=== PATIENT | male | born 1980 | race African-American/Black ===

== ENCOUNTER 2017-10-15 18:37 | Emergency (ER) | payer OTHER ==
[~2017-10-15] VITALS: Ht 188 cm; Wt 113.4 kg
--- NOTE | ~2017-10-15 | EKG ---
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: [facility] : 1980 Requested By: Joey Hernández Order Number: [id number] MD: Jersey Palacios Measurements Intervals [place] Rate: 70 P: 57 NC: 162 QRS: 22 QRSD: 97 T: 33 QT: 368 QTc: 398 Interpretive Statements Sinus rhythm No significant abnormality No previous ECG available for comparison Electronically Signed On 10-16-2017 9:18:48 CDT by Jersey Palacios [email or web address] <ELECTRONICALLY SIGNED> By: Jersey Palacios MD, [facility] 10/16/17 0918 1853 1853 Jersey Palacios MD, FAC /EPI
[~2017-10-15 18:37] MED LIST: IBUPROFEN 200200 M1 PO; IBUPROFEN 600600 M1 PO; PROCTOFOAM-HC F10 GM RC; STOOL SOFTENER1 EAC2 PO; ULTRAM 50MG TAB50 MG PO
[2017-10-15 19:20] LABS: ABSOLUTE NEUTROPHILS 2.2 thou/uL (1.4-8.2); BASOPHILS 1.1 % (0.0-2.0); EOSINOPHILS 3.7 % (0.0-3.0); HEMATOCRIT 44.3 % (42.0-52.0); LYMPHOCYTES 47.3 % (24.0-44.0); MCH 28.9 pg (26.0-34.0); MCHC 33.9 g/dL (28.0-37.0); MCV 85.3 fL (80.0-100.0); MONOCYTES 6.6 % (1.0-8.0); PLATELET COUNT 266 thou/uL (150-400); POLYS 41.3 % (36.0-66.0); RBC 5.19 mil/uL (4.50-6.00); RDW 13.2 % (10.5-14.5); WBC 5.4 thou/uL (4.0-11.0)
[2017-10-15 19:29] LABS: ANION GAP 7 mmol/L (7-16); BUN 16 mg/dL (7-18); CALCIUM 9.5 mg/dL (8.5-10.1); CHLORIDE 103 mmol/L (98-107); CO2 28 mmol/L (21-32); GLUCOSE 122 mg/dL (74-106); POTASSIUM 3.7 mmol/L (3.5-5.1); SODIUM 138 mmol/L (136-145)
[2017-10-15 19:39] LABS: ALBUMIN 3.8 g/dL (3.4-5.0); DIRECT BILIRUBIN 0.1 mg/dL (<0.1-0.3); MAGNESIUM 2.1 mg/dL (1.8-2.4); SGOT 20 U/L (15-37); SGPT 33 U/L (30-65); TOTAL BILIRUBIN 0.5 mg/dL (<0.1-1.0); TOTAL PROTEIN 7.9 g/dL (6.4-8.2); TROPONIN-I < 0.04 ng/mL (<0.06)
[2017-10-15 20:16] VITALS: BP 112/75
== END 2017-10-15 20:17 | disposition home or self-care (01) ==
LOC: ER 18:37
PROVIDERS: Physician Assistant
DX: R07.89 Other chest pain (principal); R06.02 Shortness of breath; R06.00 Dyspnea, unspecified

== ENCOUNTER 2018-03-09 10:32 | Observation (INO) | payer OTHER ==
[~2018-03-09] VITALS: Ht 188 cm; Wt 113.4 kg
--- NOTE | ~2018-03-09 | EEG ---
[facility] [address] [address] ELECTROENCEPHALOGRAM Name: LURDES NAILS Room #: 458-P [facility] M.RTravis#: [id number] Admission: 03/09/18 Attend Phys: Desiree Segundo Discharge: Date of : 78 Report #: [id number] THIS REPORT FOR: //name// CC: FAM physician/PCP Desiree Bowden DATE OF SERVICE: 03/10/2018 This patient is being evaluated for followup of seizures. This is a repeat EEG to compare with the last one. The patient's background activity is about 11 Hz and 40 microvolts. The patient went to sleep that is associated with bilaterally symmetrical sleep spindle and slow waves. Photic stimulation is unremarkable. There may be 1 episode of seizure activity. IMPRESSION: Marked improvement in this patient's EEG since yesterday. There is either complete or near complete resolution of the patient's epileptiform activity on the EEG. Clinical correlation is recommended. Thank you very much for this referral. By: [id number] Chris Bowden MD /melissa
--- NOTE | ~2018-03-09 | EEG ---
[facility] [address] [place] [address] ELECTROENCEPHALOGRAM Name: LURDES NAILS Room #: REG [facility]#: [id number] Admission: 03/09/18 Attend Phys: Discharge: Date of : 78 Report #: [id number] THIS REPORT FOR: //name// CC: HEATHER physician/PCP Italo Heath DATE OF SERVICE: 03/09/2018 The patient's EEG was done to evaluate the patient for seizure. EEG was done by placing the electrode by standard 10-20 system of electrode placement. Both referential and sequential montages were used for recording. Background activity in this patient's EEG is about 10 Hz and 30 microvolt. The patient became drowsy and that is associated with bilateral slowing. Photic stimulation is unremarkable. Repeated episodes of spike and slow wave activity was noticed during this record. IMPRESSION: This patient's EEG demonstrates repeated episodes of spike and slow wave activity on both sides. That finding would be consistent with seizure disorder. Thank you very much for this referral. By: 1401 1417 Chris Bowden MD /melissa
--- NOTE | ~2018-03-09 | HC ---
[facility] [place] [address] CONSULTATION Name: LURDES NAILS Room #: 458-[facility] M..#: [id number] Admission: 03/09/18 Attend Phys: Desiree Nice Discharge: Date of : 78 Report #: [id number] THIS REPORT FOR: //name// CC: HEATHER physician/PCP Desiree Bowden DATE OF SERVICE: 03/09/2018 HISTORY OF PRESENT ILLNESS: This is a 37-year-old male patient who indicated that he started having seizure when he was 14. They were grand mal seizure and he was put on Dilantin. He took Dilantin for several years and the seizures were controlled. However, before the seizures were controlled, he had multiple seizures. They were all grand mal seizures. He stopped taking his Dilantin by himself several years ago. He did not have any more episodes, but at 6:00 this morning he started having jerking movements. These are periodic jerks which he is having. They came spontaneously without any trauma. They are quite frequent. It is not associated with any headache. REVIEW OF SYSTEMS: Indicate that he had seizure disorder as described. He has been seen in the Emergency Room twice for the chest pain, but I do not think any cardiac etiology has been found. He indicates otherwise he is healthy. I carried out the 14-point review of system and that looks unremarkable. PAST MEDICAL HISTORY: Positive for seizure. FAMILY HISTORY: Negative for epilepsy. SOCIAL HISTORY: He drinks alcohol very rarely. He does not smoke. 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 I asked him if they were aware of his history of seizure. He indicated nobody asked him. PHYSICAL EXAMINATION: This patient is alert and responsive. He is able to follow simple command. His cranial nerve examinations appear unremarkable. His strength, sensation, reflexes and tone is symmetrical. There is no meningeal sign. There is no carotid bruit. Cardiac examination is unremarkable. His vital signs indicate blood pressure of 145/86, respiration is 16, pulse is 78, and temperature is 98.4. LABORATORY DATA: Indicate his sodium is 137. His hemoglobin is 15. His magnesium is normal. His EEG demonstrates pretty significant seizure activity on both sides. It is a generalized spike and slow wave activity. IMPRESSION AND RECOMMENDATIONS: I had a long talk with this patient. I told him that he needs to be on anticonvulsant and he needs to take it all his life. [facility] [address] [place] [address] CONSULTATION Name: LURDES NAILS Room #: [facility] Lashawn Ibrahim#: [id number] Admission: 03/09/18 Attend Phys: Desiree Nice Discharge: Date of : 78 Report #: [id number] His EEG is markedly abnormal. I discussed available anticonvulsants with him and after discussing with him, we will go ahead and give him a loading dose of Keppra about 1000 mg and then start him on 750 b.i.d. His EEG shows so much seizure activity and he is repeatedly having jerking movement, he is set up to have a grand mal seizure. Because of that, I recommended admitting him till tomorrow. We will repeat the EEG tomorrow to see if epileptiform activity has decreased. I told him that he needs to take seizure precaution. I discussed those seizure precautions with him. I told him that he cannot drive any vehicle for 6 months. If has no seizure for 6 months, he can drive his car. I told him that he cannot drive his truck any more, but can he ever able to drive truck and how long he has to take the restrictions he needs to address that with Department of Transportation doctor, but for 6 months at least he cannot drive any kind of vehicle. He understood that very well. All of it was discussed with him in detail and more than 50 minutes of time was spent taking care of this patient today and majority of that time was spent counseling the patient and coordinating his care by talking to other health resident care technician. By: [id number] Chris Bowden MD /melissa
[2018-03-09 10:51] VITALS: BP 155/90
[2018-03-09 12:54] LABS: CALCIUM 9.3 mg/dL (8.5-10.1); CREATININE 0.9 mg/dL (0.7-1.3); MAGNESIUM 1.9 mg/dL (1.8-2.4); POTASSIUM 3.6 mmol/L (3.5-5.1)
[2018-03-09 15:21] LABS: ABSOLUTE NEUTROPHILS 4.1 thou/uL (1.4-8.2); BASOPHILS 0.7 % (0.0-2.0); EOSINOPHILS 1.7 % (0.0-3.0); HEMATOCRIT 43.8 % (42.0-52.0); HEMOGLOBIN 14.9 gm/dL (14.0-18.0); LYMPHOCYTES 31.1 % (24.0-44.0); MCV 85.4 fL (80.0-100.0); MONOCYTES 5.9 % (1.0-8.0); PLATELET COUNT 311 thou/uL (150-400); POLYS 60.6 % (36.0-66.0); RBC 5.13 mil/uL (4.50-6.00); RDW 13.1 % (10.5-14.5); WBC 6.7 thou/uL (4.0-11.0)
[2018-03-09 15:31] LABS: URINE BILIRUBIN NEGATIVE (Negative); URINE BLOOD NEGATIVE (Negative); URINE CLARITY CLEAR; URINE COLOR YELLOW; URINE GLUCOSE-RANDOM* NEGATIVE (Negative); URINE KETONES NEGATIVE (Negative); URINE LEUKOCYTES-REFLEX NEGATIVE (Negative); URINE NITRITE-REFLEX NEGATIVE (Negative); URINE PROTEIN (DIPSTICK) NEGATIVE (Negative); URINE UROBILINOGEN 0.2 E.U./dl (0.2-1.0)
[2018-03-09 15:39] LABS: AMP/METHAMP Negative (Negative); BARBITURATES Negative (Negative); BENZODIAZEPINES Negative (Negative); COCAINE Negative (Negative); METHADONE Negative (Negative); OPIATES Negative (Negative); PCP Negative (Negative)
[2018-03-09 20:43] VITALS: BP 110/56
[2018-03-09 21:30] VITALS: BP 135/61
[2018-03-10 04:20] VITALS: BP 119/70
[2018-03-10 05:47] LABS: HEMATOCRIT 41.9 % (42.0-52.0); HEMOGLOBIN 14.3 gm/dL (14.0-18.0); MCH 28.8 pg (26.0-34.0); MCHC 34.1 g/dL (28.0-37.0); MCV 84.4 fL (80.0-100.0); PLATELET COUNT 250 thou/uL (150-400); RBC 4.97 mil/uL (4.50-6.00); RDW 13.2 % (10.5-14.5); WBC 4.9 thou/uL (4.0-11.0)
[2018-03-10 06:03] LABS: MAGNESIUM 1.9 mg/dL (1.8-2.4); POTASSIUM 3.9 mmol/L (3.5-5.1)
[2018-03-10 08:00] VITALS: BP 113/74
[2018-03-10 08:26] LABS: ABSOLUTE NEUTROPHILS 1.2 thou/uL (1.4-8.2)
[2018-03-10 08:29] LABS: ATYPICAL LYMPHS 4 %
[2018-03-10 08:30] LABS: ANISOCYTOSIS SLIGHT
[2018-03-10] MEDS ORDERED: KEPPRA 500 MG500 M2 PO (10:31)
[2018-03-10 11:28] VITALS: BP 113/74
[2018-03-10 11:37] VITALS: BP 113/74
== END 2018-03-10 13:03 | disposition home or self-care (01) ==
LOC: ER 10:32 → EROBS 14:20 → 4W 20:55
PROVIDERS: Emergency Medicine; Nurse Practitioner
DX: G40.909 Epilepsy, unspecified, not intractable, without status epilepticus (principal); R94.01 Abnormal electroencephalogram [EEG]; Z79.899 Other long term (current) drug therapy; Z72.89 Other problems related to lifestyle

== ENCOUNTER 2020-04-30 15:00 | Emergency (ER) | payer OTHER ==
[~2020-04-30] VITALS: Ht 185.4 cm; Wt 80.3 kg
[~2020-04-30 15:00] MED LIST changes: +KEPPRA 500 MG500 M2 PO
[2020-04-30 15:39] LABS: HEMATOCRIT 41.6 % (42.0-52.0); MCH 29.3 pg (26.0-34.0); MCHC 33.7 g/dL (28.0-37.0); PLATELET COUNT 261 thou/uL (150-400); RBC 4.79 mil/uL (4.50-6.00); RDW 12.8 % (10.5-14.5); WBC 3.8 thou/uL (4.0-11.0)
[2020-04-30 15:49] LABS: ANION GAP 8 mmol/L (7-16); BUN 11 mg/dL (7-18); CALCIUM 9.2 mg/dL (8.5-10.1); CHLORIDE 104 mmol/L (98-107); CO2 27 mmol/L (21-32); CREATININE 0.8 mg/dL (0.7-1.3); GLUCOSE 94 mg/dL (74-106); SODIUM 139 mmol/L (136-145)
[2020-04-30 15:58] LABS: ALBUMIN 4.1 g/dL (3.4-5.0); SGOT 18 U/L (15-37); SGPT 26 U/L (16-63); TOTAL BILIRUBIN 0.5 mg/dL (0.2-1.0); TOTAL PROTEIN 7.5 g/dL (6.4-8.2); TROPONIN-I <0.06 ng/mL (<0.06)
[2020-04-30 16:01] LABS: ABSOLUTE NEUTROPHILS 0.7 thou/uL (1.4-8.2); ANISOCYTOSIS 1+
[2020-04-30 18:33] VITALS: BP 124/76
--- NOTE | 2020-05-01 07:16 | EKG ---
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 : 1980 Requested By: Ruthie Blevins Order Number: [id number] MD: Sid Trevino Measurements Intervals [place] Rate: 72 P: 77 [place]: 149 QRS: 65 QRSD: 97 T: 47 QT: 358 QTc: 392 Interpretive Statements Sinus rhythm ST elev, probable normal early repol pattern Compared to ECG 10/15/2017 18:53:53 ST (T wave) deviation now present Electronically Signed On 05-01-2020 7:16:16 IMPREGNATOR by Sid Trevino [email or web address] <ELECTRONICALLY SIGNED> By: Sid Trevino MD, [facility] 05/01/20 0716 1500 1500 Sid Trevino MD, FACC /EPI
== END 2020-04-30 18:02 | disposition home or self-care (01) ==
LOC: ER 15:00
PROVIDERS: Emergency Medicine
DX: R07.89 Other chest pain (principal); G40.909 Epilepsy, unspecified, not intractable, without status epilepticus; F17.200 Nicotine dependence, unspecified, uncomplicated; Z79.899 Other long term (current) drug therapy